=== PATIENT | female | born 1995 | race Caucasian/White ===

== ENCOUNTER 2023-05-07 14:35 | Emergency (ER) | payer SELFPAY ==
--- NOTE | ~2023-05-07 | XR_ITS ---
Left foot Technique: AP, oblique, and lateral views were obtained. Clinical History: Injury Findings: No acute fracture or dislocation is seen. Osseous alignment is anatomic. Joint spaces are p reserved without erosive or degenerative change. Soft tissues are unremarkable. Impression: Unremarkable left foot radiographs. Reviewed, dictated and finalized at location . Impression: Unremarkable left foot radiographs.
[2023-05-07 14:43] VITALS: BP 133/81; PULSE 84; RESP 16; TEMP 36.4; O2SAT 100
--- NOTE | 2023-05-07 14:47 | ED.LOWEXIN ---
HPI - Extremity Injury (Lower) General Chief Complaint: Extremity Injury, Lower Stated Complaint: Left Foot/Toe Injury History of Present Illness HPI Narrative: PATIENT PRESENTS WITH LEFT FOOT PAIN. PATIENT STATES SHE DROPPED A WEIGHT ON HER FOOT EARLIER TODAY AND CONTINUES TO HAVE FOOT PAIN. SLIGHT BRUISING AND SWELLING TO EXTREMITIES NO DEFORMITY NOTED. Related Data Home Medications Medication Instructions Recorded Confirmed No Home Medications 05/07/23 05/07/23 Allergies Allergy/AdvReac Type Severity Reaction Status Date / Time No Known Allergies Allergy Verified 05/07/23 14:46 Review of Systems Review of Systems: CONSTITUTIONAL: DENIES FEVER, CHILLS, OR SWEATS. EYES: DENIES VISUAL CHANGES, REDNESS, OR DISCHARGE. ENT: DENIES RHINORRHEA, CONGESTION, SORE THROAT, OR OTALGIA. CARDIOVASCULAR: DENIES CHEST PAIN, PALPITATIONS, OR EDEMA. RESPIRATORY: DENIES COUGH OR DYSPNEA. GASTROINTESTINAL: DENIES ABDOMINAL PAIN, NAUSEA, VOMITING, OR DIARRHEA. GENITOURINARY: DENIES DYSURIA OR HEMATURIA. SKIN: DENIES RASH OR ITCHING. MUSCULOSKELETAL: DENIES BACK PAIN, JOINT PAIN, OR MYALGIA. NEUROLOGIC: DENIES HEADACHE, NUMBNESS, OR WEAKNESS. PSYCHIATRIC: DENIES ANXIETY OR DEPRESSION. Exam Narrative: GENERAL: WELL-APPEARING, WELL-NOURISHED, AND IN NO ACUTE DISTRESS. HEAD: NORMOCEPHALIC, ATRAUMATIC. EYES: PERRLA AND EOMI. ENT: NARES CLEAR, NO RHINORRHEA OR EPISTAXIS. MUCOUS MEMBRANES MOIST. NECK: SUPPLE. CHEST: CLEAR TO AUSCULTATION. NO RESPIRATORY DISTRESS. HEART: REGULAR RATE AND RHYTHM. NO MURMUR HEARD. NORMAL PERIPHERAL PULSES. ABDOMEN: SOFT, NONTENDER, NONDISTENDED, NORMAL ACTIVE BOWEL SOUNDS. EXTREMITIES: NORMAL RANGE OF MOTION. NO EDEMA. ANKLE FOOT EXAM ANKLE EXAM SKIN INTACT. NORMAL DP PULSE, NORMAL CAP REFILL. NORMAL SENSATION. NORMAL DP PULSE, NORMAL CAP REFILL. NORMAL SENSATION. NVI. NO TENDERNESS TO FOOT SENSATION NVI NORMAL DORSALIS PEDIS PULSE. NORMAL MOVEMETN OF ALL TOES. NORMAL CAPILLARY REFILL. NORMAL SKIN COLOR. NO SKIN LESIONS SKIN TNTACT NO CALF PAIN NO CALF TENDERNESS NOCALF SWELLING NORMAL ROM OF KNEE.KIN INTACT. NORMAL DP PULSE, NORMAL CAP REFILL. NORMAL SENSATION. SKIN: WARM, DRY, NO RASH. NEURO: NO FOCAL DEFICITS. ALERT AND ORIENTED X3. YONG COMA SCALE EYE OPENING: SPONTANEOUS 4 YONG COMA SCALE MOTOR: OBEYS COMMANDS 6 YONG COMA SCALE VERBAL: ORIENTED 5 YONG COMA SCALE TOTAL 15 Course Course Level of Care: Express Care Visit Vital Signs Vital signs: Vital Signs Temperature 36.4 C L 05/07/23 14:43 Pulse Rate 84 05/07/23 14:43 Respiratory Rate 16 05/07/23 14:43 Blood Pressure 133/81 05/07/23 14:43 Pulse Oximetry 100 05/07/23 14:43 Oxygen Delivery Room Air 05/07/23 14:43 Temperature 36.4 C L 05/07/23 14:43 Pulse Rate 84 05/07/23 14:43 Respiratory Rate 16 05/07/23 14:43 Blood Pressure 133/81 05/07/23 14:43 Pulse Oximetry 100 05/07/23 14:43 Oxygen Delivery Room Air 05/07/23 14:43 PLEASE NATA SCHEDULE A FOLLOWUP VISIT WITH YOUR PERSONAL PHYSICIAN FOR FURTHER EVALUATION AND TREATMENT. INCLUDING RECHECK AND DISCUSSION OF YOUR BLOOD PRESSURE. IF YOUR SYMPTOMS PERSIST, CHANGE OR WORSEN SIGNIFICANTLY BEFORE YOU CAN CONTACT YOUR PERSONAL PHYSICIAN THEN PLEASE, WITHOUT DELAY, GO TO THE EMERGENCY DEPARTMENT FOR FURTHER EVALUATION Discharge Plan Discharge Clinical Impression: Acute foot pain Patient Disposition: Home, Self-Care Condition: Stable Instructions: Foot Sprain (ED) Additional Instructions: ICE TO THE AREA 20-30 MINUTES 4-6 TIMES A DAY ELEVATE ABOVE HEART ELASTIC WRAP OR ORTHOPEDIC SPLINT DIRECTED FOR COMFORT FOR THE NEXT 5-7 DAYS TYLENOL FOR LESSER PAIN IBUPROFEN REGULARLY FOR THE NEXT 2-3 DAYS FOR THE INFLAMMATION FOLLOW-UP WITH PCP IF FURTHER PROBLEMS OR CONCERNS -IF YOU HAVE ANY WORSENING OF SYMPTOMS OR ANY OTHER CONCERNS PLEASE GO TO THE ED IMMEDIATELY. Prescriptions: No Action No Home Medi
== END 2023-05-07 15:20 | disposition home or self-care (01) ==
PROVIDERS: Emergency Provider Nurse Practitioner Family
DX: M79.672 Pain in left foot (principal); S99.822A Other specified injuries of left foot, initial encounter
CPT/HCPCS: 73630; 99213; G0463

== ENCOUNTER 2024-05-15 18:08 | Emergency (ER) | payer BC, SELFPAY ==
[2024-05-15 18:14] VITALS: BP 138/83; PULSE 72; RESP 14; TEMP 36.4; O2SAT 100
--- NOTE | 2024-05-15 18:29 | ED.URI ---
HPI - URI/Sore Throat General Chief Complaint: Upper Respiratory Infection Stated Complaint: Shortenss of Breath/Sore Throat/Dizziness Time Seen by Provider: 05/15/24 18:52 Source: patient and RN notes reviewed Mode of arrival: ambulatory Limitations: no limitations History of Present Illness HPI Narrative: 28-year-old female presents with concern for sore throat, scratchy throat, diarrhea, nausea, dizziness, cough and chest tightness. Reports she has been exposed to COVID and flu. She has not taken anything [id number] MD elicited complaint: cough and sore throat Related Data Allergies Allergy/AdvReac Type Severity Reaction Status Date / Time No Known Allergies Allergy Verified 05/07/23 14:46 Review of Systems Review of Systems: CONSTITUTIONAL: Reports malaise. Denies fever. EYES: Denies visual changes, redness, or discharge. ENT: Reports rhinorrhea, congestion, and sore throat. CARDIOVASCULAR: Denies chest pain, palpitations, or edema. RESPIRATORY: Reports cough, chest tightness, dyspnea. GASTROINTESTINAL: Denies abdominal pain, nausea, vomiting, diarrhea SKIN: Denies rash or itching. MUSCULOSKELETAL: Denies myalgia. NEUROLOGIC: Denies headache. All systems reviewed & are unremarkable except as noted in HPI and below PMFSH Comments At time of signature, agree with nursing past medical, surgical, social and family history. There is no relevant family history pertinent to the presenting complaint Exam Narrative: GENERAL: Well-appearing, well-nourished, and in no acute distress. HEAD: Normocephalic EYES: PERRLA, conjunctivae clear ENT: Nares clear. Mucous membranes moist. TM pearly espinoza with sharp light reflex bilaterally; no tragal tenderness. Oropharynx not erythematous without lesions. Tonsils not enlarged and without exudate, no drooling, no hoarseness, no trismus, uvula midline. NECK: Supple. No lymphadenopathy CHEST: Clear to auscultation, breath sounds equal. No wheezing, rhonchi, rales, or stridor. No respiratory distress, speaks in full sentences. HEART: Regular rate and rhythm. No murmur heard. SKIN: Warm, dry, no rash. NEURO: Alert and oriented x3. PSYCH: Normal mood and affect Course Course Emergency Course: Patient is aware of diagnosis, understands and agrees to treatment plan. Anticipatory guidance given. Patient agrees to follow-up as directed and is aware of reasons to seek care at the emergency department. Portions of this record may have been created with voice recognition software Level of Care: Express Care Visit Vital Signs Vital signs: Vital Signs Temperature 97.5 F L 05/15/24 18:14 Pulse Rate 72 05/15/24 18:14 Respiratory Rate 14 05/15/24 18:14 Blood Pressure 138/83 05/15/24 18:14 Pulse Oximetry 100 05/15/24 18:14 Oxygen Delivery Room Air 05/15/24 18:14 Temperature 97.5 F L 05/15/24 18:14 Pulse Rate 72 05/15/24 18:14 Respiratory Rate 14 05/15/24 18:14 Blood Pressure 138/83 05/15/24 18:14 Pulse Oximetry 100 05/15/24 18:14 Oxygen Delivery Room Air 05/15/24 18:14 Reviewed. MDM - URI/Sore Throat MDM Narrative Medical decision making narrative: Differential diagnosis considered: Varela virus, strep pharyngitis, allergic rhinitis, upper respiratory tract infection, sinusitis, rhinosinusitis, nasopharyngitis. viral pharyngitis, otitis media, otitis externa, pneumonia, bronchitis, viral cough syndrome, viral syndrome, and influenza. Exam findings show no acute concerns or changes; patient is non-toxic appearing and is in no distress. Patient is appropriate for outpatient treatment and follow-up. Lab Data Attestation: I reviewed the patient's lab results. Critical Care Time Critical Care Time Critical Care Time: No Discharge Plan Discharge Clinical Impression: Upper respiratory infection Patient Disposition: Home, Self-Care Condition: Stable Instructions: Upper Respiratory Infection (ED) Additional Instructions:
[2024-05-15 19:03] LABS: EDCOVIDSCREEN Negative (Negative); EDSTREPNEGPOS1 Negative (Negative)
== END 2024-05-15 19:10 | disposition home or self-care (01) ==
PROVIDERS: Emergency Provider Nurse Practitioner
DX: J06.9 Acute upper respiratory infection, unspecified (principal); Z20.822 Contact with and (suspected) exposure to COVID-19
CPT/HCPCS: 87081; 87635; 87880; 99213; G0463